=== PATIENT | female | born 1955 | race Caucasian/White ===

== ENCOUNTER 2024-12-13 13:04 | Emergency (ER) | payer MEDICARE, MEDICAID ==
[~2024-12-13] VITALS: Ht 167.6 cm; Wt 50.3 kg
[2024-12-13] MEDS ORDERED: HYDROCODONE/APAP 5/325MG TABLET ONE ×2 (13:49→21:02)
[2024-12-13] MEDS: HYDROCODONE/APAP 5/325MG TABLET PO ONE (14:20)
[2024-12-13] MEDS ORDERED: LORA-259 PO (15:01)
[2024-12-13] MEDS ORDERED: HYDR-3972 PO (15:01)
[2024-12-13] MEDS ORDERED: ZOLP10TA2 PO (15:01)
[2024-12-13] MEDS ORDERED: ESCI20TA PO (15:01)
[2024-12-13] MEDS ORDERED: ALBU18HF2 IH (15:01)
[2024-12-13] MEDS ORDERED: BUPR-78 PO (15:01)
[2024-12-13] MEDS ORDERED: AMLO-213 PO (15:01)
[2024-12-13] MEDS ORDERED: LAMO100T17 PO (15:01)
[2024-12-13 15:17] LABS: BASOPHILS # (AUTO) 0.1 K/uL (0.0-0.2); BASOPHILS % (AUTO) 0.9 % (0.0-2.0); EOSINOPHILS # (AUTO) 0.1 K/uL (0.0-0.7); HEMATOCRIT 46 % (33-45); HEMOGLOBIN 15.6 g/dL (11.5-14.8); LYMPHOCYTES # (AUTO) 1.6 K/uL (0.8-4.8); LYMPHOCYTES % (AUTO) 18.8 % (20.0-44.0); MEAN CORPUSCULAR HEMOGLOBIN 31 PG (26.0-33.0); MEAN CORPUSCULAR HGB CONC 34 g/dl (31.0-36.0); MEAN CORPUSCULAR VOLUME 90 fL (82-100); MONOCYTES # (AUTO) 0.8 K/uL (0.1-1.30); MONOCYTES % (AUTO) 9.5 % (2.0-12.0); NEUTROPHILS # (AUTO) 6.1 K/uL (1.8-8.9); NEUTROPHILS % (AUTO) 69.8 % (43.0-81.0); PLATELET COUNT (AUTO) 318 K/uL (150-450); RED BLOOD CELL COUNT(AUTO) 5.09 MIL/uL (4.0-5.2); RED CELL DISTRIBUTION WIDTH 13.9 % (11.5-15.0); WHITE BLOOD COUNT (AUTO) 8.7 K/uL (4.3-11.0)
[2024-12-13 15:26] LABS: CALCIUM, SERUM 9.2 mg/dL (8.5-10.1); CREATININE 1.1 mg/dL (0.6-1.3)
[2024-12-13 15:49] LABS: POTASSIUM 2.7 mmol/L (3.5-5.1)
[2024-12-13 15:53] LABS: INR 0.98 (0.91-1.10); PARTIAL THROMBOPLASTIN TIME 28.4 SEC (24.3-34.3); PROTHROMBIN TIME 10.4 SECS (9.2-11.1)
[2024-12-13] MEDS ORDERED: IV NS 0.9% 1,000 ML IV PRN (16:00)
[2024-12-13] MEDS ORDERED: LORAZEPAM 1 MG TABLET PO PRN (16:00)
[2024-12-13] MEDS ORDERED: ZOLPIDEM TARTRATE 5 MG TABLET PO PRN (16:00)
[2024-12-13] MEDS ORDERED: MAG HYDROX/AL HYDROX/SIMETH 30 ML UDC PO PRN (16:00)
[2024-12-13] MEDS ORDERED: MAGNESIUM HYDROXIDE 30 ML UDC PO PRN (16:00)
[2024-12-13] MEDS ORDERED: ALBUTEROL SULFATE 8 GM HFA.AER.AD IH PRN (16:00)
[2024-12-13] MEDS ORDERED: Z GUARD REMEDY 4 OZ OINT TP PRN (16:00)
[2024-12-13] MEDS ORDERED: MORPHINE SULFATE INJ 2 MG/ML DISP.SYRIN IV PRN (16:00)
[2024-12-13] MEDS ORDERED: ONDANSETRON HCL/PF 4 MG/2 ML VIAL IVP PRN (16:00)
[2024-12-13] MEDS ORDERED: ACETAMINOPHEN 325 MG TABLET PO PRN (16:00)
[2024-12-13] MEDS ORDERED: POTASSIUM CHLORIDE 20 MEQ TAB.PRT.SR PO ONE (16:12)
[2024-12-13] MEDS: POTASSIUM CHLORIDE 20 MEQ TAB.PRT.SR PO ONE (16:16)
[2024-12-13] MEDS ORDERED: LamoTRIgine 100 MG TABLET PO SCH (17:00)
[2024-12-13 19:55] VITALS: TEMP 97.8
[2024-12-13] MEDS: HYDROCODONE/APAP 5/325MG TABLET PO PRN (21:10)
[2024-12-14 01:09] VITALS: BP 113/69; O2SAT 91
[2024-12-14] MEDS ORDERED: HYDROCODONE/APAP 5/325MG TABLET ONE (01:49)
[2024-12-14] MEDS ORDERED: buPROPion SR 150 MG TABLET.ER PO SCH (09:00)
[2024-12-14] MEDS ORDERED: AMLODIPINE BESYLATE 10 MG TABLET PO SCH (09:00)
[2024-12-14] MEDS ORDERED: NICOTINE PATCH (14MG) 14 MG PATCH.TD24 TD SCH (09:00)
[2024-12-14] MEDS ORDERED: ESCITALOPRAM OXALATE (10 MG) 10 MG TABLET PO SCH (09:00)
== END 2024-12-14 02:31 | disposition short-term general hospital (02) ==
LOC: ER 13:10
DX: S72.092A Other fracture of head and neck of left femur, initial encounter for closed fracture (principal); S43.015A Anterior dislocation of left humerus, initial encounter; E87.6 Hypokalemia; F14.10 Cocaine abuse, uncomplicated; I10 Essential (primary) hypertension; F17.210 Nicotine dependence, cigarettes, uncomplicated; F19.11 Other psychoactive substance abuse, in remission; F31.9 Bipolar disorder, unspecified; F41.9 Anxiety disorder, unspecified; G89.4 Chronic pain syndrome; J43.9 Emphysema, unspecified; J44.89 Other specified chronic obstructive pulmonary disease; M17.12 Unilateral primary osteoarthritis, left knee; Z59.00 Homelessness unspecified; Z79.899 Other long term (current) drug therapy; Z88.0 Allergy status to penicillin; Z90.5 Acquired absence of kidney; Z96.612 Presence of left artificial shoulder joint; Z20.822 Contact with and (suspected) exposure to COVID-19; W01.0XXA Fall on same level from slipping, tripping and stumbling without subsequent striking against object, initial encounter; Y93.89 Activity, other specified; Y92.89 Other specified places as the place of occurrence of the external cause; Y99.8 Other external cause status
CPT/HCPCS: 36415; 71045-TC; 73030-TC; 73502; 73552; 73564-TC; 80048-TC; 85025-TC; 85730-TC; 86850-TC; 93970-TC